=== PATIENT | female | born 1970 | race Caucasian/White ===

== ENCOUNTER 2017-02-21 12:09 | Emergency (ER) | payer MEDICARE, OTHER ==
--- NOTE | 2017-02-21 12:28 | ED Physician Documentation ---
General Adult - HISTORIAN Historian: patient, spouse - HPI Stated Complaint: middle to low back pain that wraps around the left side of her abdomen Chief Complaint: Upper Back Injury/ Pain Onset: days ago (1) Timing: still present, persistent since Severity: moderate Modifying Factors: when she moves to the left sometimes increases but the pain mostly is sharp Context: Sharp Quality: Constant Location: middle to low back pain that radiates around the left side Further Comments: yes Last known Well Date: 02/20/17 Last Known Well Time: 14:00 Last known Well Code/Unknown Code: Unknown - ROS CONST: no problems, chills EYES/ENT: none CVS/RESP: none GI/: abdominal pain. denies: problems urinating, vomiting, nausea, diarrhea MS/SKIN/LYMPH: none NEURO/PSYCH: denies: headache, dizziness - PAST HX Past History: other (Scoliosis ) Surgeries/Procedures: other (gallbladder, ear, foot and left knee ) Allergies/Adverse Reactions: Allergies Allergy/AdvReac Type Severity Reaction Status Date / Time No Known Allergies Allergy Verified 02/21/17 12:28 Home Medications: Ambulatory Orders Medication Instructions Recorded Cyclobenzaprine HCl 10 mg PO BID #30 tablet 02/21/17 Methylprednisolone [Medrol] 4 mg PO 1T 6 Days tab.ds.pk 02/21/17 - SOCIAL HX Smoking History: cigarettes Alcohol Use: none Drug Use: none - FAMILY HX Family History: No - REVIEWED ASSESSMENTS Nursing Assessment Reviewed: Yes Vitals Reviewed: Yes ED Results Lab/Radiology - Radiology Radiology Impressions: CT abdomen and pelvis without IV contrast Clinical history: Right-sided flank and abdominal pain for 1 day Previous cholecystectomy Radiation dose DLP 372 No visible focal hepatic or splenic pathology. Normal pancreas and adrenal glands. Horseshoe kidneys. No stones in the kidneys, no hydronephrosis. Bowel loops are not dilated. Bladder is normal. The visible lung bases are clear. No free fluid or free air in the abdomen or pelvis . severe levoscoliosis and lumbar spine. Appendix is not well seen. 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 Impression: No stones in the horseshoe kidneys or ureters and no hydronephrosis . Severe levoscoliosis of lumbar spine with osteoarthrosis of the left SI joint. No bowel obstruction, no free fluid or free air in the abdomen or pelvis . None visible appendix Electronically signed on Feb 21, 2017 1:06:57 PM CDT by: Stephen Joshi General Adult Physical Exam - PHYSICAL EXAM GENERAL APPEARANCE: mild distress EENT: eye inspection normal NECK: normal inspection RESPIRATORY: no resp distress, chest non-tender, breath sounds normal CVS: reg rate & rhythm, heart sounds normal, equal pulses, no murmur ABDOMEN: soft, normal bowel sounds, no distension. No: rebound BACK: CVA tenderness (L), other (scoliosis deformity of back also pain to palpation thoracic to lumbar area with pain radiating with palpation to left side ) EXTREMITIES: non-tender, normal range of motion, no evidence of injury, no edema NEURO: oriented X3, CN's nml as tested, motor nml, sensation nml, mood/affect nml Discharge Clincal Impression: Back pain Qualifiers: Back pain location: low back pain Chronicity: unspecified Back pain laterality : left Sciatica presence: without sciatica Qualified Code(s): M54.5 - Low back pain Prescriptions: Cyclobenzaprine HCl 10 mg PO BID #30 tablet Methylprednisolone [Medrol] 4 mg PO 1T 6 Days tab.ds.pk Referrals: Amelia Flores FNP [Primary Care Provider] - 2 Days Condition: Stable Disposition: 01 HOME, SELF-CARE Decision to Admit: NO Date of Decison to Admit: 02/21/17 Decision Time: 13:25
[2017-02-21] MEDS ORDERED: KETOROLAC TROMETHAMINE 30 MG/1ML VIAL IVP ONE (12:35)
[2017-02-21] MEDS ORDERED: KETOROLAC TROMETHAMINE 60 MG/2 ML VIAL IM ONE (13:11)
--- NOTE | 2017-02-21 13:20 | Diagnostic Imaging Report ---
[facility] [id number] [facility] [address] [place] [address]. [id number] Report Submission Date: Feb 21, 2017 1:06:57 PM CDT Patient Study Name: JACOB PALOMINO Date: Feb 21, 2017 12:41:30 PM CDT Modality Type: CT\SR Gender: F Description: CT ABD & PELVIS W/O CO : 70 Institution: [facility] Physician: HOOD RIVERO - JEFF CT abdomen and pelvis without IV contrast Clinical history: Right-sided flank and abdominal pain for 1 day Previous cholecystectomy Radiation dose DLP 372 No visible focal hepatic or splenic pathology. Normal pancreas and adrenal glands. Horseshoe kidneys. No stones in the kidneys, no hydronephrosis. Bowel loops are not dilated. Bladder is normal. The visible lung bases are clear. No free fluid or free air in the abdomen or pelvis . severe levoscoliosis and lumbar spine. Appendix is not well seen. 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 Impression: No stones in the horseshoe kidneys or ureters and no hydronephrosis . Severe levoscoliosis of lumbar spine with osteoarthrosis of the left SI joint. No bowel obstruction, no free fluid or free air in the abdomen or pelvis . None visible appendix Electronically signed on Feb 21, 2017 1:06:57 PM CDT by: Stephen CLARK
[2017-02-21 13:36] VITALS: BP 133/88
[2017-02-22 06:37] LABS: APPEARANCE,URINE CLEAR (CLEAR); COLOR,URINE YELLOW (YELLOW); OCCULT BLOOD,URINE NEGATIVE (NEGATIVE); URINE HCG NEGATIVE (NEGATIVE); UROBILINOGEN URINE 0.2 Eu (0.2-1.0)
== END 2017-02-21 13:30 | disposition home or self-care (01) ==
LOC: ED 12:09
DX: M54.5 Low back pain (principal)
CPT/HCPCS: 74176; 81002; 81025; J1885; 96372; 99283; S1016